=== PATIENT | male | born 1980 | race Caucasian/White ===

== ENCOUNTER 2017-06-24 17:05 | Emergency (ER) | payer BC ==
[~2017-06-24] VITALS: Ht 182.9 cm; Wt 115.2 kg
[2017-06-24] MEDS ORDERED: HYDROCODONE/APAP 10MG-325MG TAB PO ONE (17:15)
--- NOTE | 2017-06-24 17:39 | Diagnostic Imaging Report ---
EXAM: ANKLE 3 + VIEWS RIGHT DATE: 06/24/2017 5:11 PM INDICATION: \S\r/o fx \[id number] \S\[id number] COMPARISON: None FINDINGS: Soft tissue swelling present laterally. The mortise is symmetric with no abnormality of the talar dome identified. No fracture is identified. There is a small posterior calcaneal enthesophyte. IMPRESSION: Lateral soft tissue swelling with no fracture identified. Signed by: Dr. Guillermo Petty MD on 06/24/2017 5:36 PM
[2017-06-24 18:20] VITALS: BP 151/83
== END 2017-06-24 18:10 | disposition home or self-care (01) ==
LOC: ER 17:08
DX: M25.571 Pain in right ankle and joints of right foot (principal); S93.491A Sprain of other ligament of right ankle, initial encounter; Y93.89 Activity, other specified; Y92.488 Other paved roadways as the place of occurrence of the external cause
CPT/HCPCS: 99283

== ENCOUNTER → 2017-09-21 | Outpatient (CLI) | payer BC ==
--- NOTE | 2017-09-21 14:48 | Diagnostic Imaging Report ---
TECHNIQUE: Magnetic resonance imaging of the LEFT KNEE was performed WITHOUT injected contrast. HISTORY: Tear of medial meniscus, fell, pain, June 2017 COMPARISON: None available. FINDINGS: LIGAMENTS AND TENDONS: ACL: Intact PCL: Intact Collateral ligaments: Intact Iliotibial band: Unremarkable Popliteal tendon: Intact Extensor mechanism: Intact JOINT: Menisci: Medial: Intact Lateral: Intact Articular Cartilage: Medial Compartment: Superficial erosion of the weightbearing cartilage. Lateral Compartment: No focal defect. Patellofemoral Compartment: High-grade to full-thickness erosions at the patellar apex and medial facet. Joint Fluid: The amount of fluid within the joint is within physiologic limits. BONES: No focal or infiltrative bone marrow replacing abnormality. No acute fracture. Minimal subchondral bone marrow edema underlying the medial patellar facet. SOFT TISSUES: Mild anterior soft tissue edema overlying the patellar tendon. IMPRESSION: 1. Mild to moderate patellofemoral compartment predominant osteoarthrosis. 2. Mild anterior superficial soft tissue edema. Signed by: Dr. Lucio Light D.O., M.M.M. on 09/21/2017 2:44 PM
== END ==
LOC: MRI 10:07
PROVIDERS: ATTEND Specialist
DX: S83.242A Other tear of medial meniscus, current injury, left knee, initial encounter (principal)

== ENCOUNTER → 2019-08-15 | Outpatient (CLI) | payer BC ==
--- NOTE | 2019-08-15 15:51 | Diagnostic Imaging Report ---
Abdominal Ultrasound Clinical Diagnosis: Right upper quadrant pain Comparison: None Technique: Multiple transaxial and longitudinal images were obtained through the abdomen with real time ultrasonography. A low-frequency curvilinear transducer was utilized. Multiple images were submitted for interpretation. Report: Liver: The liver measures 22 cm in the right midaxillary line. There are no focal masses or abnormal cysts. The echogenicity is diffusely increased. Spleen: The spleen measures 10.1 cm in the left mid axillary line. There are no focal masses or cysts. Gallbladder: The transverse diameter is not measurable. The wall measures 1 mm. There is one large 2.8 cm echogenic calculus visualized. There is no sludge visualized. Sonographic Ocampo's sign is negative. Biliary tree: There is no evidence of intra or extra hepatic biliary ductal dilatation. The common bile duct measures 4 mm. Portal vein: The portal vein measures 11 mm. There is hepatopedal flow. Hepatic veins: Unremarkable. Pancreas: The pancreatic tail is not well seen secondary to overlying bowel gas. The remainder of the pancreas shows normal echotexture and no focal masses or cysts. There is no pancreatic duct dilatation. Ascites: Absent Pleural Effusion: Cannot be seen Right kidney: The right kidney measures 12.2 x 6.4 x 5.6 cm. There is no evidence of hydronephrosis, mass, cyst. Left kidney: The left kidney measures 12 x 6.1 x 5.3 cm. There is no evidence of hydronephrosis, mass, cyst. IVC/Aorta: Partially seen segments demonstrate no abnormality. Impression: Large echogenic liver suggestive of diffuse hepatic steatosis. Clinical correlation recommended. A large echogenic gallstone without sonographic signs of acute cholecystitis. Signed by: Stanley Duke MD on 08/15/2019 3:48 PM
== END ==
LOC: US 10:09
PROVIDERS: ATTEND Internal Medicine
DX: R10.11 Right upper quadrant pain (principal)
CPT/HCPCS: 76700

== ENCOUNTER 2019-11-26 14:13 | Emergency (ER) | payer BC ==
[~2019-11-26] VITALS: Ht 182.9 cm; Wt 115.2 kg
--- OUTSIDE RECORDS SUMMARY | 2019-11-26 14:28 | XMS REPORT | Continuity of Care Document ---
Author Author [facility] t Organization [facility] Address [address] [place] [address] [address] [place] [address] Phone Unavailable Care Team Providers Care Industrial Order Clerk Name Role Phone NO, PCP PCP Unavailable Larisa ESTRADA Attphys Unavailable MONIKA MILLARD Attphycarson Unavailable Artem STEPHENS Attphycarson Unavailable Problems This patient has no known problems. Allergies, Adverse Reactions, Alerts This patient has no known allergies or adverse reactions. Medications This patient has no known medications. Procedures This patient has no known procedures. Encounters Start Date/Time End Date/Time Encounter Type Admission Type Att[facility] Care Department Encounter ID Source 2017-06-24 17:08:00 2017-06-24 18:10:00 Departed Emergency Room ER ELOISA STEPHENS [facility] [id number] [facility] Results Test Description Test Time Test Comments Results Result Comments Source US ABDOMEN COMPLETE 2019-08-15 15:43:00 [facility] [address] [place], [place] [address] Patient Name: PRETTY SANCHEZ MR #: [id number] : 1980 Age/Sex: 38/M Req #: [id number] Adm Physician: Ordered by: JODIE ESTRADA MD Report #: [id number] Location: Room/Bed: Procedure: [id number] US/US ABDOMEN COMPLETE Exam Date: 08/15/19 Exam Time: 1034 REPORT STATUS: Signed Abdominal Ultrasound Clinical Diagnosis: Right upper quadrant pain Comparison: None Technique: Multiple transaxial and longitudinal images were obtained through the abdomen with real time ultrasonography. A low-frequency curvilinear transducer was utilized. Multiple images were submitted for interpretation. Report: Liver: The liver measures 22 cm in the right midaxillary line. There are no focal masses or abnormal cysts. The echogenicity is diffusely increased. Spleen: The spleen measures 10.1 cm in the left mid axillary line. There are no focal masses or cysts. Gallbladder: The transverse diameter is not measurabl e. The wall measures 1 mm. There is one large 2.8 cm echogenic calculus visualized. There is no sludge visualized. Sonographic Ocampo's sign is negative. Biliary tree: There is no evidence of intra or extra hepatic biliary ductal dilatation. The common bile duct measures 4 mm. Portal vein: The portal vein measures 11 mm. There is hepatopedal flow. Hepatic veins: Unremarkable. Pancreas: The pancreatic tail is not well seen secondary to overlying bowel gas. The remainder of the pancreas shows normal echotexture and no focal masses or cysts. There is no pancreatic duct dilatation. Ascites: Absent Pleural Effusion: Cannot be seen Right kidney: The right kidney measures 12.2 x 6.4 x 5.6 cm. There is no evidence of hydronephrosis, mass, cyst. Left kidney: The left kidney measures 12 x 6.1 x 5.3 cm. There is no evidence of hydronephrosis, mass, cyst. IVC/Aorta: Partially seen segments demonstrate no abnormality. Impression: Large echogenic liver suggestive of diffuse hepatic steatosis. Clinical correlation recommended. A large echogenic gallstone without sonographic signs of acute cholecystitis. Signed by: Mamie Roblero MD on 08/15/2019 3:48 PM Dictated By: MAMIE ROBLERO MD 1548 Transcribed By: BONNIE on 08/15/19 1543 COPY TO: JODIE ESTRADA MD MRI KNEE LEFT WO 2017-09-21 14:13:00 [place] [address] Patient Name: PRETTY GARCIA #: [id number] : 1980 Age/Sex: 36/M [facility] #: [id number] [facility] Physician: Ordered by: MONIKA MILLARD MD Report #: [id number] Location: MRI Room/Bed: Procedure: [id number] MRI/MRI KNEE LEFT WO Exam Date: Exam Time: REPORT STATUS: Signed TECHNIQUE: Magnetic resonance imaging of the LEFT KNEE was performed WITHOUT injected contrast. HISTORY: Tear of medial meniscus, fell, pain, June 2017 COMPARISON: None available. FINDINGS: LIGAMENTS AND TENDONS: ACL: Intact PCL: Intact Collateral ligaments: Intact Iliotibial band: Unremarkable Popliteal tendon: Intact Extensor mechanism: Intact JOINT: Menisci: Medial: Intact Lateral: Intact Articular Cartilage: Medial Compartment: Superficial erosion of the weightbearing cartilage. Lateral Compartment: No focal defect. Patellofemoral Compartment: High-grade to full-thickness erosions at the patellar apex and medial facet. Joint Fluid: The amount of fluid within the joint is within physiologic limits. BONES: No focal or infiltrative bone marrow replacing abnormality. No acute fracture. Minimal subchondral bone marrow edema underlying the medial patellar facet. SOFT TISSUES: Mild anterior soft tissue edema overlying the patellar tendon. IMPRESSION: 1. Mild to moderate patellofemoral compartment predominant osteoarthrosis. 2. Mild anterior superficial soft tissue edema. Signed by: Elizabeth ReyO., M.M.M. on 09/21/2017 2:44 PM Dictated By: JOHN PAUL SWAN DO 1444 Transcribed By: BONNIE on 09/21/17 1444 COPY TO: MONIKA MILLARD MD ANKLE 3 + VIEWS RIGHT [place] [address] Patient Name: PRETTY GARCIA MR #: [id number] : 1980 Age/Sex: 36/M Req #: [id number] Adm Physician: Ordered by: ALEXANDREA HUITRON NP Report #: [id number] Location: ER Room/Bed: Procedure: [id number] DX/ANKLE 3 + VIEWS RIGHT Exam Date: 06/24/17 Exam Time: 1725 REPORT STATUS: Signed EXAM: ANKLE 3 + VIEWS RIGHT DATE: 06/24/2017 5:11 PM INDICATION: COMPARISON: None FINDINGS: Soft tissue swelling present laterally. The mortise is symmetric with no abnormality of the talar dome identified. No fracture is identified. There is a small posterior calcaneal enthesophyte. IMPRESSION: Lateral soft tissue swelling with no fracture identified. Signed by: Dr. Usha Petty MD on 06/24/2017 5:36 PM Dictated By: USHA PETTY MD 35 Transcribed By: BONNIE on 06/24/171735 COPY TO: ALEXANDREA HUITRON NP
[2019-11-26] MEDS ORDERED: KETOROLAC TROMETHAMINE 30 MG/ML VIAL IV ONE (14:45)
[2019-11-26] MEDS ORDERED: SODIUM CHLORIDE 0.9% 1000ML 1,000 ML IV SCH (14:45)
[2019-11-26] MEDS ORDERED: ACETAMINOPHEN 325 MG TAB PO ONE (14:45)
[2019-11-26] MEDS ORDERED: ONDANSETRON HCL INJ 2MG/ML 2ML 2 MG/ML VIAL IV PRN (14:45)
[2019-11-26 15:07] LABS: BASOPHILS # (AUTO) 0.1 (0.0-0.1); BASOPHILS % 0.5 % (0.0-1.0); EOSINOPHILS % 0.1 % (0.0-6.0); HEMATOCRIT 46.4 % (38.2-49.6); HEMOGLOBIN 15.8 g/dL (14.0-18.0); LYMPHOCYTES # (AUTO) 1.8 (1.0-3.2); LYMPHOCYTES % 9.1 % (18.0-39.1); MEAN CORPUSCULAR HEMOGLOBIN 29.1 pg (28-32); MEAN CORPUSCULAR HGB CONC 34.1 g/dL (31-35); MEAN CORPUSCULAR VOLUME 85.5 fL (81-99); MONOCYTES # (AUTO) 1.4 (0.2-0.8); MONOCYTES % 7.2 % (4.4-11.3); NEUTROPHILS # (AUTO) 16.5 (2.1-6.9); NEUTROPHILS % 82.5 % (38.7-80.0); PLATELET COUNT 256 x10e3/uL (140-360); RED BLOOD COUNT 5.43 x10e6/uL (4.3-5.7); RED CELL DISTRIBUTION WIDTH 13.3 % (11.7-14.4)
--- NOTE | 2019-11-26 15:23 | Emergency Department Note ---
History of Present Illnes History of Present Illness Chief Complaint: Abdominal Complaints History of Present Illness This is a 38 year old male Chief Complaint Comment PATIENT IN FROM HOME WITH COMPLAINTS OF FEVER, NAUSEA, VOMITING, AND DIARRHEA X 48 HOURS. Historian: Patient Arrival Mode: [employer] Required: No Onset (how long ago): day(s) (2) Location: Abdomen Quality: Diarrhea Radiation: Reports non-radiation Severity: moderate Onset quality: sudden Duration (how long): day(s) (2) Timing of current episode: constant Progression: unchanged Chronicity: new Context: Denies recent illness, Denies recent surgery Relieving factors: none Exacerbating factors: none Associated symptoms: Reports denies other symptoms Treatments prior to arrival: none (ALDA HACKETT MD) Past Medical/Family History Physician Review I have reviewed the patient's past medical and family history. Any updates have been documented here. (ALDA HACKETT MD) Past Medical History Recent Fever: Yes Clinical Suspicion of Infectio: Yes New/Unexplained Change in Ment: No Past Medical History: None Past Surgical History: None (ALDA HACKETT MD) Other Last Tetanus: unk (ALDA HACKETT MD) Review of Systems Review of Systems Constitutional: Reports no symptoms EENTM: Reports no symptoms Cardiovascular: Reports no symptoms Respiratory: Reports no symptoms Gastrointestinal: Reports as per HPI, Reports diarrhea, Reports nausea Genitourinary: Reports no symptoms Musculoskeletal: Reports no symptoms Integumentary: Reports no symptoms Neurological: Reports no symptoms Psychological: Reports no symptoms Endocrine: Reports no symptoms Hematological/Lymphatic: Reports no symptoms (ALDA HACKETT MD) Physical Exam Related Data Allergies: Coded Allergies: No Known Allergies (Unverified , 06/24/17) Triage Vital Signs Vital Signs Date Time Temp Pulse Resp B/P (MAP) Pulse Ox O2 Delivery O2 Flow Rate FiO2 11/26/19 14:29 103.0 110 20 120/80 96 Room Air Vital signs reviewed: Yes (ALDA HACKETT MD) Physical Exam CONSTITUTIONAL Constitutional: Present well-developed, Present well-nourished HENT HENT: Present normocephalic, Present atraumatic, Present oropharynx clear/moist, Present nose normal HENT L/R: Present left ext ear normal, Present right ext ear normal EYES Eyes: Reports PERRL, Reports conjunctivae normal NECK Neck: Present ROM normal PULMONARY Pulmonary: Present effort normal, Present breath sounds normal CARDIOVASCULAR Cardiovascular: Present regular rhythm, Present heart sounds normal, Present capillary refill normal, Present normal rate GASTROINTESTINAL Abdominal: Present soft, Present nontender, Present bowel sounds normal GENITOURINARY Genitourinary: Present exam deferred SKIN Skin: Present warm, Present dry MUSCULOSKELETAL Musculoskeletal: Present ROM normal NEUROLOGICAL Neurological: Present alert, Present oriented x 3, Present no gross motor or sensory deficits PSYCHOLOGICAL Psychological: Present mood/affect normal, Present judgement normal (ALDA HACKETT MD) Results Laboratory Result Diagram: 11/26/19 1440 Laboratory Laboratory Tests Test 11/26/19 14:40 White Blood Count 19.99 x10e3/uL (4.8-10.8) Red Blood Count 5.43 x10e6/uL (4.3-5.7) Hemoglobin 15.8 g/dL (14.0-18.0) Hematocrit 46.4 % (38.2-49.6) Mean Corpuscular Volume 85.5 fL (81-99) Mean Corpuscular Hemoglobin 29.1 pg (28-32) Mean Corpuscular Hemoglobin Concent 34.1 g/dL (31-35) Red Cell Distribution Width 13.3 % (11.7-14.4) Platelet Count 256 x10e3/uL (140-360) Neutrophils (%) (Auto) 82.5 % (38.7-80.0) Lymphocytes (%) (Auto) 9.1 % (18.0-39.1) Monocytes (%) (Auto) 7.2 % (4.4-11.3) Eosinophils (%) (Auto) 0.1 % (0.0-6.0) Basophils (%) (Auto) 0.5 % (0.0-1.0) Neutrophils # (Auto) 16.5 (2.1-6.9) Lymphocytes # (Auto) 1.8 (1.0-3.2) Monocytes # (Auto) 1.4 (0.2-0.8) Eosinophils # (Auto) 0.0 (0.0-0.4) Basophils # (Auto) 0.1 (0.0-0.1) Absolute Immature Granulocyte (auto 0.12 x10e3/uL (0-0.1) Lab results reviewed: Yes (ALDA HACKETT MD) Imaging Imaging results reviewed: Yes (ALDA HACKETT MD) Assessment & Plan Medical Decision Making MDM 38-year-old male presents for diarrhea, nausea, fever 2 days. No significant abdominal tenderness on exam. Initial differential includes diverticulitis versus gastroenteritis versus coronavirus among others. Laboratory workup shows WBC elevation and fever. Otherwise unremarkable. Feels much improved with antipyretics and fluids. Will COVID swab and DC patient home pending CT scan results. Do not suspect sepsis at this time. Diagnosis currently favors COVID. (ALDA HACKETT MD) Reassessment Reassessment time: 15:22 Reassessment Well appearing, NAD (ALDA HACKETT MD) Reassessment time: 19:17 Reassessment pt well appearing, nad, abd soft,nt,nd, bs positive, pt afebrile at this time (WINSTON HALL MD) Assessment & Plan Final Impression: (1) Diarrhea (ALDA HACKETT MD) Final Impression: (1) Diarrhea (2) Fever (WINSTON HALL MD) Last Vital Signs Date Time Temp Pulse Resp B/P (MAP) Pulse Ox O2 Delivery O2 Flow Rate FiO2 11/26/19 14:29 103.0 110 20 120/80 96 Room Air (ALDA HACKETT MD) Medications in the ED Ondansetron HCl 4 mg Q4H PRN IV NAUSEA AND VOMITING; Start 11/26/19 at 14:45; Stop 12/26/19 at 14:44 Sodium Chloride 1,000 ml @ 100 mls/hr Q10H IV ; Start 11/26/19 at 14:45; Stop 12/26/19 at 14:44 Ketorolac Tromethamine 15 mg ONCE ONCE IV ; Start 11/26/19 at 14:45; Stop 11/26/19 at 14:46; Status DC Acetaminophen 650 mg ONCE ONCE PO ; Start 11/26/19 at 14:45; Stop 11/26/19 at 14:46; Status DC (ALDA HACKETT MD) ALDA HACKETT MD Nov 26, 2019 15:23 WINSTON HALL MD Nov 26, 2019 19:18
[2019-11-26 15:25] LABS: ALANINE AMINOTRANSFERASE 43 IU/L (0-55); ALBUMIN 4.5 g/dL (3.5-5.0); ALBUMIN/GLOBULIN RATIO 1.5 (0.8-2.0); ALKALINE PHOSPHATASE 100 IU/L (40-150); ANION GAP 15.2 mmol/L (8-16); BLOOD UREA NITROGEN 7 mg/dL (7-26); BUN/CREATININE RATIO 8 (6-25); CALCIUM 8.8 mg/dL (8.4-10.2); CARBON DIOXIDE 21 mmol/L (22-29); CHLORIDE 102 mmol/L (98-107); CREATININE, SERUM 0.91 mg/dL (0.72-1.25); EST GLOMERULAR FILTRATION RATE > 60 ML/MIN (60-); GLUCOSE 131 mg/dL (74-118); POTASSIUM 3.2 mmol/L (3.5-5.1); SODIUM 135 mmol/L (136-145)
[2019-11-26] MEDS ORDERED: SODIUM CHLORIDE 0.9% 50ML 50 ML ONE (16:16)
[2019-11-26] MEDS ORDERED: IOPAMIDOL 370 MG/ML 200 ML INFUS..BTL INJ ONE (16:17)
[2019-11-26 17:19] LABS: BILIRUBIN,URINE SMALL (NEGATIVE); CLARITY,URINE SL CLOUDY (CLEAR); KETONES,URINE NEGATIVE (NEGATIVE); LEUKOCYTE ESTERASE ,URINE NEGATIVE (NEGATIVE); NITRITE,URINE NEGATIVE (NEGATIVE); PROTEIN,URINE DIPSTICK 1+ (NEGATIVE); URINE UROBILINOGEN 0.2 mg/dL (0.2 - 1)
[2019-11-26 17:20] LABS: COLOR,URINE STRAW (YELLOW)
[2019-11-26 17:31] LABS: RBC,URINE 0-5 /HPF (0-5)
[2019-11-26 17:32] LABS: BACTERIA,URINE FEW /HPF; EPITHELIAL CELLS,URINE FEW /LPF
--- NOTE | 2019-11-26 18:58 | Diagnostic Imaging Report ---
EXAMINATION: CT of the abdomen and pelvis with contrast. TECHNIQUE: Spiral CT images of the abdomen and pelvis were performed from the lung bases to the lesser trochanters after the intravenous administration of 100 cc of Isovue 370 and the oral administration of water. Coronal and sagittal reformatted images were obtained. COMPARISON: Abdominal ultrasound 08/15/2019 CLINICAL HISTORY:Nausea, fever, vomiting and diarrhea for 48 hours DISCUSSION: Exam was made available for interpretation at 1830 hours ABDOMEN/PELVIS: LOWER THORAX:Linear subsegmental atelectasis or scarring in the left lower lobe. HEPATOBILIARY: Decreased attenuation of the hepatic parenchyma compared to the spleen, consistent with tendinosis. Focal fatty sparing adjacent to the gallbladder fossa. Normal hepatic contour. No focal lesions. No intra or extrahepatic biliary ductal dilation. GALLBLADDER: 2.5 cm stone in the gallbladder lumen. No wall thickening. SPLEEN: No splenomegaly. PANCREAS: No focal masses or ductal dilatation. ADRENALS: No adrenal nodules. KIDNEYS/URETERS: No hydronephrosis, stones, or solid mass lesions. PELVIC ORGANS/BLADDER: Bladder and prostate are unremarkable. PERITONEUM/RETROPERITONEUM: No free air or fluid. LYMPH NODES: No intra-abdominal, retroperitoneal, pelvic or inguinal lymphadenopathy. VESSELS: The celiac trunk,superior and inferior mesenteric and bilateral renal arteries are patent The portal, superior mesenteric and splenic veins are patent. GI TRACT: No bowel dilation or evidence of obstruction. No pericolonic inflammatory changes. Appendix is well identified and normal in caliber. No wall thickening. Stomach is unremarkable. BONES AND SOFT TISSUE: No aggressive lytic or suspicious focal sclerotic lesions. Degenerated disc at T10-T11 . Soft tissues are grossly unremarkable. IMPRESSION: 1. No acute abdominal pelvic abnormalities. No bowel dilation or evidence of obstruction. 2. Cholelithiasis, without cholecystitis. 3. Diffuse hepatic steatosis. Signed by: Dr. Adalid Price M.D. on 11/26/2019 6:54 PM
[2019-11-26 19:38] VITALS: BP 115/69
== END 2019-11-26 19:45 | disposition home or self-care (01) ==
LOC: ER 14:26
DX: R50.9 Fever, unspecified (principal); R19.7 Diarrhea, unspecified; R11.2 Nausea with vomiting, unspecified; Z11.59 Encounter for screening for other viral diseases
CPT/HCPCS: 36415; 74177; 80053; 81001; 83690; 85025; 99284; J1885; J2405; J7030; Q9967; U0002

== ENCOUNTER → 2020-10-22 | Outpatient (CLI) | payer BC | LOC: RAD 13:48 | PROVIDERS: ATTEND Internal Medicine | DX: M62.830 Muscle spasm of back (principal) | CPT/HCPCS: 72070; 72110 ==

== ENCOUNTER → 2021-09-07 | Day surgery (SDC) | payer BC ==
[2021-09-05 08:21] LABS: BASOPHILS # (AUTO) 0.1 (0.0-0.1); BASOPHILS % 1.2 % (0.0-1.0); EOSINOPHILS # (AUTO) 0.5 (0.0-0.4); EOSINOPHILS % 4.4 % (0.0-6.0); HEMATOCRIT 49.3 % (38.2-49.6); HEMOGLOBIN 16.1 g/dL (14.0-18.0); LYMPHOCYTES # (AUTO) 3.5 (1.0-3.2); MEAN CORPUSCULAR HEMOGLOBIN 29.3 pg (28-32); MEAN CORPUSCULAR HGB CONC 32.7 g/dL (31-35); MEAN CORPUSCULAR VOLUME 89.6 fL (81-99); MONOCYTES # (AUTO) 0.9 (0.2-0.8); MONOCYTES % 8.3 % (4.4-11.3); NEUTROPHILS # (AUTO) 5.3 (2.1-6.9); NEUTROPHILS % 51.7 % (38.7-80.0); PLATELET COUNT 282 x10e3/uL (140-360); RED CELL DISTRIBUTION WIDTH 13.4 % (11.7-14.4)
[2021-09-05 08:55] LABS: CALCIUM 8.4 mg/dL (8.4-10.2); CREATININE, SERUM 0.94 mg/dL (0.72-1.25)
[~2021-09-07] MED LIST: ALBUTEROL SULFATE HFA 8GM INHALATION AEROSOL INH ONE; ATORVASTATIN CA20 MG PO; BETAMETHASONE DISODIUM PHOS 6 MG/ML VIAL ONE; BUPIVACAINE HCL 0.25% 10ML MPF VIAL INJ ONE; DEXAMETHASONE SOD PHOS INJ 4 MG/ML SDV ONE; KETOROLAC TROMETHAMINE 30 MG/ML VIAL ONE; LIDOCAINE HCL 1% LOCAL INJ 20 ML VIAL ONE; LIDOCAINE HCL 2% LOCAL INJ 5 ML SDV VIAL INJ ONE; MUPIROCIN 2% OINT 22 GM TUBE ONE; ONDANSETRON HCL INJ 2MG/ML 2ML 2 MG/ML VIAL ONE; POVIDONE IODINE 0.05% 0.05 % ML PO ONE; PROPOFOL IV EMULSION 10 MG/ML 20 ML VIAL ONE; SEVOFLURANE INHAL SOLN 250 ML PEN BTL ONE; TIZANIDINE HCL4 M1 PO; TYLENOL
[2021-09-07 10:10] VITALS: BP 134/80
== END | disposition home or self-care (01) ==
LOC: OR 05:23
PROVIDERS: ATTEND Podiatrist Foot Surgery
DX: M20.12 Hallux valgus (acquired), left foot (principal); M20.42 Other hammer toe(s) (acquired), left foot; M77.32 Calcaneal spur, left foot; G57.52 Tarsal tunnel syndrome, left lower limb; M79.672 Pain in left foot; G58.8 Other specified mononeuropathies; F41.9 Anxiety disorder, unspecified; E66.01 Morbid (severe) obesity due to excess calories; Z68.41 Body mass index [BMI] 40.0-44.9, adult; J45.909 Unspecified asthma, uncomplicated; E78.5 Hyperlipidemia, unspecified; Z87.891 Personal history of nicotine dependence; Z01.810 Encounter for preprocedural cardiovascular examination; Z01.812 Encounter for preprocedural laboratory examination; Z01.818 Encounter for other preprocedural examination; Z20.822 Contact with and (suspected) exposure to COVID-19
CPT/HCPCS: 28119; 28285 ×2; 28292; 36415; 64704; 64708; 71046; 73620; 80048; 85025; 93005; C1713 ×3; J0690; J0720; J1100; J1885; J2001 ×2; J2405; J2704; U0002

== ENCOUNTER → 2021-10-14 | Outpatient (CLI) | payer BC ==
[~2021-10-14] MED LIST changes: -ALBUTEROL SULFATE HFA 8GM INHALATION AEROSOL INH ONE; -BETAMETHASONE DISODIUM PHOS 6 MG/ML VIAL ONE; -BUPIVACAINE HCL 0.25% 10ML MPF VIAL INJ ONE; -DEXAMETHASONE SOD PHOS INJ 4 MG/ML SDV ONE; -KETOROLAC TROMETHAMINE 30 MG/ML VIAL ONE; -LIDOCAINE HCL 1% LOCAL INJ 20 ML VIAL ONE; -LIDOCAINE HCL 2% LOCAL INJ 5 ML SDV VIAL INJ ONE; -MUPIROCIN 2% OINT 22 GM TUBE ONE; -ONDANSETRON HCL INJ 2MG/ML 2ML 2 MG/ML VIAL ONE; -POVIDONE IODINE 0.05% 0.05 % ML PO ONE; -PROPOFOL IV EMULSION 10 MG/ML 20 ML VIAL ONE; -SEVOFLURANE INHAL SOLN 250 ML PEN BTL ONE
== END ==
LOC: MRI 12:03
PROVIDERS: ATTEND Internal Medicine
DX: S83.502A Sprain of unspecified cruciate ligament of left knee, initial encounter (principal)

== ENCOUNTER 2021-10-23 16:34 | Emergency (ER) | payer BC ==
[~2021-10-23] VITALS: Ht 182.9 cm; Wt 115.2 kg
[2021-10-23 17:42] LABS: BASOPHILS # (AUTO) 0.1 (0.0-0.1); BASOPHILS % 0.9 % (0.0-1.0); EOSINOPHILS # (AUTO) 0.6 (0.0-0.4); EOSINOPHILS % 4.4 % (0.0-6.0); HEMATOCRIT 43.4 % (38.2-49.6); HEMOGLOBIN 14.3 g/dL (14.0-18.0); LYMPHOCYTES # (AUTO) 5.3 (1.0-3.2); LYMPHOCYTES % 37.7 % (18.0-39.1); MEAN CORPUSCULAR HEMOGLOBIN 28.8 pg (28-32); MEAN CORPUSCULAR HGB CONC 32.9 g/dL (31-35); MEAN CORPUSCULAR VOLUME 87.5 fL (81-99); MONOCYTES % 7.1 % (4.4-11.3); NEUTROPHILS % 49.7 % (38.7-80.0); PLATELET COUNT 330 x10e3/uL (140-360); RED BLOOD COUNT 4.96 x10e6/uL (4.3-5.7); RED CELL DISTRIBUTION WIDTH 12.9 % (11.7-14.4)
[2021-10-23 17:51] LABS: INR 1.06; PROTHROMBIN TIME 14.8 seconds (11.9-14.5)
[2021-10-23 18:00] LABS: ALBUMIN 3.8 g/dL (3.5-5.0); ALBUMIN/GLOBULIN RATIO 1.1 (0.8-2.0); ANION GAP 16.4 mmol/L (8-16); CALCIUM 8.9 mg/dL (8.4-10.2); CREATININE, SERUM 0.74 mg/dL (0.72-1.25); POTASSIUM 3.4 mmol/L (3.5-5.1)
[2021-10-23 18:29] LABS: EOSINOPHILS % (MANUAL) 9 % (0-7); LYMPHOCYTES % (MANUAL) 31 % (19-48); MONOCYTES % (MANUAL) 7 % (3.4-9.0); NEUTROPHILS % (MANUAL) 43 % (40-74); PLATELET ESTIMATE ADEQUATE; PLATELET MORPHOLOGY COMMENT NORMAL
[2021-10-23 20:56] VITALS: BP 141/83
== END 2021-10-23 20:30 | disposition home or self-care (01) ==
LOC: ER 17:03
DX: M79.89 Other specified soft tissue disorders (principal); I82.412 Acute embolism and thrombosis of left femoral vein; E11.65 Type 2 diabetes mellitus with hyperglycemia; I10 Essential (primary) hypertension; E78.5 Hyperlipidemia, unspecified; Z20.822 Contact with and (suspected) exposure to COVID-19
CPT/HCPCS: 0223U; 36415; 80053; 85025; 85610; 85730; 93971; 99284